=== PATIENT | female | born 1960 | race Caucasian/White ===

== ENCOUNTER 2023-09-08 04:31 | Day surgery (SDC) | payer BC ==
[2023-09-05 11:51] VITALS: BMI 24.3
[2023-09-08 07:56] VITALS: RESP 18; TEMP 98
[2023-09-08 08:25] VITALS: PULSE 68
[2023-09-08 08:26] VITALS: BP 101/53
== END 2023-09-08 08:43 | disposition home or self-care (01) ==
LOC: JASU-ENDO 04:31
PROVIDERS: ATTEND Internal Medicine Gastroenterology
PROC: 0DJD8ZZ Inspection of Lower Intestinal Tract, Via Natural or Artificial Opening Endoscopic (ICD-10-PCS; principal; 2023-09-08 08:00)
DX: Z12.11 Encounter for screening for malignant neoplasm of colon (principal)